=== PATIENT | female | born 1995 | race Caucasian/White ===

== ENCOUNTER 2019-09-05 17:49 | Emergency (ER) | payer OTHER ==
[~2019-09-05] VITALS: Ht 160 cm; Wt 62.9 kg
[~2019-09-05 17:49] MED LIST: BACI28.34 TP; DOXY100T PO
[2019-09-05 17:50] VITALS: BP 141/112
[2019-09-05] MEDS ORDERED: IV NORMAL SALINE 1,000ML 1,000 ML IV ONE (18:30)
== END 2019-09-05 18:18 | disposition left against medical advice (07) ==
LOC: ER 17:49
DX: L98.8 Other specified disorders of the skin and subcutaneous tissue (principal); Z53.21 Procedure and treatment not carried out due to patient leaving prior to being seen by health care provider

== ENCOUNTER 2019-09-25 02:04 | Emergency (ER) | payer OTHER ==
[~2019-09-25] VITALS: Ht 160 cm; Wt 62.9 kg
[2019-09-25] MEDS ORDERED: LINE600T15 PO (02:28)
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
[2019-09-25] MEDS ORDERED: IBUPROFEN 600 MG TABLET. PO ONE (03:00)
[2019-09-25 03:20] VITALS: BP 102/52
== END 2019-09-25 03:26 | disposition home or self-care (01) ==
LOC: ER 02:04
DX: L03.116 Cellulitis of left lower limb (principal); F17.200 Nicotine dependence, unspecified, uncomplicated; Z88.0 Allergy status to penicillin; Z88.2 Allergy status to sulfonamides
CPT/HCPCS: 10060; 99283

== ENCOUNTER 2021-08-26 16:43 | Emergency (ER) | payer SELFPAY ==
[~2021-08-26] VITALS: Ht 160 cm; Wt 62.9 kg
[~2021-08-26 16:43] MED LIST changes: +LINE600T15 PO
[2021-08-26 17:05] VITALS: BP 156/83
[2021-08-26] MEDS ORDERED: LORA0.5T21 PO (17:32)
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
== END 2021-08-26 17:38 | disposition home or self-care (01) ==
LOC: ER 16:43
DX: F41.9 Anxiety disorder, unspecified (principal); F32.9 Major depressive disorder, single episode, unspecified; F17.210 Nicotine dependence, cigarettes, uncomplicated; F12.10 Cannabis abuse, uncomplicated
CPT/HCPCS: 99283